=== PATIENT | female | born 1975 | race Caucasian/White ===

== ENCOUNTER 2016-07-08 12:26 | Emergency (ER) | payer OTHER ==
[2016-07-08] MEDS ORDERED: SODIUM CHLORIDE 0.9% 1,000 ML IV ONE ×2 (14:37→14:46)
[2016-07-08] MEDS ORDERED: HYDROmorphone 1 MG/ML SYRINGE IVP STA ×2 (14:37→15:32)
[2016-07-08] MEDS ORDERED: PROMETHAZINE INJ 25 MG in SODIUM CHLORIDE 0.9% 50 ML IV STA (14:37)
[2016-07-08] MEDS ORDERED: HYDROmorphone 1 MG/ML SYRINGE ONE ×2 (14:46→15:36)
[2016-07-08] MEDS ORDERED: PROMETHAZINE 25 MG/1 ML VIAL ONE (14:46)
[2016-07-08] MEDS ORDERED: SODIUM CHLORIDE 0.9% MINIBAG 100 ML IV ONE (14:46)
== END 2016-07-08 16:16 | disposition home or self-care (01) ==
DX: G43.009 Migraine without aura, not intractable, without status migrainosus (principal); F17.200 Nicotine dependence, unspecified, uncomplicated
CPT/HCPCS: 96365; 96375; 96376; 99283; 99284; J1170